=== PATIENT | female | born 1975 | race Caucasian/White ===

== ENCOUNTER 2018-11-21 08:05 | Emergency (ER) | payer OTHER ==
[~2018-11-21] VITALS: Ht 170.2 cm; Wt 90.7 kg
--- NOTE | 2018-11-21 13:51 | NUR ---
I RESPONDED TO A CODE BLUE IN ED. I ARRIVED EMT'S BROUGHT PT IN, ED STAFF TOOK OVER AND BEGAN CPR. NO FAMILY OR NEXT OF KIN CAME TO HOSPITAL. I TRIED NOTIFICATION OF LISTINGS ON FACE SHEET OF A BROTHER MUSTAPHA, AND LIFE PARTNER LIYAH BUSBY. NEITHER OF WHICH HAD WORKING PHONE #'S LISTED IN OUR SYSTEM. TOD IS LISTED AT [id number] HRS. LIYAH ARRIVED, INFORMED ME OF 2 DAUGHTERS OF PT'S LIVING IN AREA. I WAS ABLE TO NOTIFY DAUGHTER JACEY ROSARIO, PPD NOTIFIED DAUGHTER ABELARDO ROSARIO. PTS' SISTER CHACHO ALSO CONTACTED ME. SHE LIVES IN [place], [place]. Gustavo.[email or web address] WAS NOTIFIED, AND DIRECTED US TO CALL HOME AND PERFORM AUTOPSY TO DETERMINE CAUSE OF . CONSULTATION WAS MADE WITH WILBERT GALLEGOS AND WAS DETERMINED THAT NOTIFICATION USING PPD WAS BEST COURSE TO FOLLOW BECAUSE OF OUTDATED CONTACT INFO. PIONEER [facility]AM IS IN CHARGE OF ARRANGEMENTS ACCORDING TO M.Domenic.'S PARACHUTE CUSHION INSTALLER LIST. I WILL CONTINUE TO FOLLOW NEEDED
== END 2018-11-21 09:45 ==
LOC: ED 08:05 → EDBD 08:05 → ED 09:45
DX: I46.9 Cardiac arrest, cause unspecified (principal)
CPT/HCPCS: 31500; 31720; 92950; 99285-25; J0171; J2997; J7030